=== PATIENT | male | born 2005 | race Two or more races ===

== ENCOUNTER 2023-05-25 02:56 | Observation (INO) | payer SELFPAY ==
[2023-05-25] MEDS ORDERED: fentaNYL 50 mcg/mL 1 mL Vial ONE ×4 (02:59→04:02)
[2023-05-25] MEDS ORDERED: Boostrix 0.5 ML (Tdap) VIAL (>/=7 yrs of age) ONE (03:14)
[2023-05-25] MEDS ORDERED: CEFAZOLIN 2 GM VIAL ONE (03:14)
[2023-05-25 03:39] LABS: #Basophils 0.1 thou/uL (0.0-0.2); #Eosinphils 0.2 thou/uL (0.0-0.7); #Monocytes 0.5 thou/uL (0.11-0.59); #Neutrophils 4.7 thou/uL (1.40-6.50); %Basophils 0.6 % (0.0-1.0); %Lymphocytes 32.3 % (28.0-48.0); %Monocytes 6.5 % (0.0-4.0); %Neutrophils 58.3 % (31.0-61.0); Hematocrit 40.8 % (42.0-52.0); Hemoglobin 13.9 g/dL (14.0-18.0); Mean Corpuscular HGB CONC 34.1 g/dL (32.0-36.0); Mean Corpuscular Hemoglobin 31.2 pg (25.0-35.0); Mean Corpuscular Volume 91.5 fl (78.0-98.0); Mean Platelet Volume 10.8 fL (7.4-10.4); Platelet Count 275 10x3/uL (130-400); RBC Distribution Width 12.9 % (11.5-14.5); Red Blood Cell (RBC) Count 4.46 mill/uL (4.00-5.20)
[2023-05-25] MEDS ORDERED: Heparin 5,000 UNITS/ML VIAL ONE (03:52)
[2023-05-25] MEDS ORDERED: Protamine Sulfate 50 MG/5 ML VIAL ONE (03:52)
[2023-05-25] MEDS ORDERED: HYDROmorphone 0.5 MG/0.5 ML SYRINGE ONE (03:56)
[2023-05-25 04:04] LABS: ALT (SGPT) 16 U/L (8-55); AST (SGOT) 24 U/L (5-34); Albumin 4.4 g/dL (3.5-5.0); Alkaline Phosphatase 70 U/L (50-130); Anion Gap 15 mmol/L (10-20); BUN (Urea Nitrogen) 8 mg/dL (8.9-20.6); Bilirubin, Total 0.4 mg/dL (0.2-1.2); Calc. Creatinine Clearance 0 mL/min (70-130); Carbon Dioxide 20 mmol/L (22-29); Chloride 110 mmol/L (98-107); Estimated GFR 109; Globulin 2.4 g/dL (2.4-3.5); Glucose 90 mg/dL (70-105); Potassium 3.3 mmol/L (3.5-5.1); Protein, Total 6.8 g/dL (6.0-8.3); Sodium 142 mmol/L (136-145)
[2023-05-25] MEDS ORDERED: Lidocaine 1% PF 5 ML VIAL ONE (04:11)
[2023-05-25] MEDS ORDERED: PROPOFOL 200 MG/20 ML VIAL ONE (04:11)
[2023-05-25] MEDS ORDERED: Succinylcholine 200 MG/10 ml SYRINGE FS ONE (04:11)
[2023-05-25 04:15] LABS: Acetaminophen Less than 10 mcg/mL (10.0-30.0); Alcohol 185.6 mg/dL (Less than 10); Salicylate Less than 8.0 mg/dL (15.0-30.0)
[2023-05-25] MEDS ORDERED: Ondansetron HCl/PF 4 MG/2 ML Vial IVP PRN (06:21)
[2023-05-25] MEDS ORDERED: Promethazine HCl 25 MG/ML VIAL IM PRN (06:21)
[2023-05-25] MEDS ORDERED: Dextrose 50% Abboject 50 ML SYRINGE SLOW IVP PRN (07:14)
[2023-05-25] MEDS ORDERED: Ondansetron ODT 4 MG TAB PO PRN (07:14)
[2023-05-25] MEDS ORDERED: Ondansetron PF 4 MG/2 ML Vial IVP PRN (07:14)
[2023-05-25] MEDS ORDERED: hydrALAZINE 20 MG/ML VIAL SLOW IVP PRN (07:14)
[2023-05-25] MEDS ORDERED: Dextrose 5% in Water 1,000 ML IV PRN (07:14)
[2023-05-25] MEDS ORDERED: Glucagon 1 MG/ML KIT IM PRN (07:14)
[2023-05-25] MEDS ORDERED: Cyclobenzaprine 10 MG TAB PO PRN (07:17)
[2023-05-25] MEDS ORDERED: traMADol HCl 50 MG TAB PO PRN (07:17)
[2023-05-25] MEDS ORDERED: Ibuprofen 800 MG TAB PO PRN (07:18)
[2023-05-25] MEDS ORDERED: Acetaminophen 500 MG TAB PO SCH (12:00)
[2023-05-25] MEDS ORDERED: traMADol HCl 50 MG TAB PO SCH (12:00)
[2023-05-25] MEDS ORDERED: CEFAZOLIN 2 GM in Sodium Chloride 0.9% 100 ML IVPB SCH ×2 (15:15→22:00)
[2023-05-25 15:48] VITALS: BP 155/78; TEMP 98
== END 2023-05-25 16:51 | disposition home or self-care (01) ==
LOC: ERS 02:56 → SDC 04:17 → SURG A 06:30
PROVIDERS: ADMIT Surgery; ATTEND Surgery
PROC: 0JQG0ZZ Repair Right Lower Arm Subcutaneous Tissue and Fascia, Open Approach (ICD-10-PCS; principal; 2023-05-25)
DX: S52.611B Displaced fracture of right ulna styloid process, initial encounter for open fracture type I or II (principal); S61.511A Laceration without foreign body of right wrist, initial encounter; G89.11 Acute pain due to trauma; W25.XXXA Contact with sharp glass, initial encounter
CPT/HCPCS: 36415; 80053; 80307; 85025; 86850; 86900; 86901; 90715; G0390; J1170; J1644; J2704; J2720; J3010; J3490